=== PATIENT | female | born 1985 | race Caucasian/White ===

== ENCOUNTER 2018-10-19 11:44 | Inpatient (IN) ==
[2018-10-19] MEDS ORDERED: Famotidine 20 MG/2 ML VIAL IVP ONE (12:10)
[2018-10-19] MEDS ORDERED: Oxytocin 20 units/ LR 1000 mL 20 UNIT/1,000 ML BAG IVC ONE (12:10)
[2018-10-19] MEDS ORDERED: Metoclopramide 10 MG/2 ML VIAL IVP ONE (12:10)
[2018-10-19] MEDS ORDERED: CeFAZolin Premix DUPLEX 2,000 MG/50 ML BAG IVPB ONE (12:10)
[2018-10-19] MEDS ORDERED: Oxytocin 20 units/ LR 1000 mL 20 UNIT/1,000 ML BAG IVC SCH ×2 (12:15→17:46)
[2018-10-19] MEDS ORDERED: Ringers Solution, Lactated 1,000 ML ONE ×2 (12:26→13:48)
[2018-10-19 12:52] LABS: Basophils # 0.1 K/mcL (0.0-0.2); Basophils % 0.6 %; Eosinophils % 0.4 %; Hematocrit 37.5 % (35.3-44.9); Hemoglobin 12.2 g/dL (11.5-15.4); Immature Granulocytes % 3.3 % (0-4); Lymphocytes # 1.4 K/mcL (0.6-4.6); Lymphocytes % 14.4 %; Mean Corpuscular HGB Conc 32.5 g/dL (31.6-35.5); Mean Corpuscular Hemoglobin 28.8 pg (28.0-33.3); Mean Corpuscular Volume 88.7 fL (83.0-100.0); Mean Platelet Volume 11.1 fL (9.4-12.4); Monocytes # 0.5 K/mcL (0.0-1.3); Monocytes % 5.3 %; Platelet Count 228 K/mcL (140-400); Red Blood Count 4.23 M/mcL (3.82-4.97); Red Cell Distribution Width 18.6 % (11.5-14.5)
--- NOTE | 2018-10-19 12:57 | OB/GYN History & Physical ---
Date of Encounter: 10/19/18 Time of Encounter: 12:55 Assessment and Plan (1) 39 weeks gestation of Current visit: Yes Status: Acute (2) S/P repeat low transverse Current visit: Yes Status: Acute History of Present Illness Chief complaint: Repeat HPI: Ms. Garcia is a 33 year old female who presents today for her scheduled repeat section. She is doing well. She is having no complaints of any kind today. Is currently 39 weeks. She having no complaints of any kind today. She denies any changes medically or surgically since her last visit. She is on no new medications. Socially she denies tobacco, alcohol, illicit drug use. She has no chronic medical conditions. Surgical history includes breast augmentation, was extraction, lip augmentation, section. She has no history of abnormal Pap smears, STDs or pelvic infections. She has no history of abnormal breast findings. Socially she denies tobacco, alcohol, illicit drug use. Family history is not territory. Obstetric history is significant for one term delivery via section and 1 early miscarriage Past Med Surg Social Fam HX - Past Medical History Medical history: malignancy Additional medical history: skin pre cancer Psychiatric history: no psych history - Past Surgical History Surgical History: other Additional surgical history: breast augmentation; skin augmentation - Social History Smoking Status: Never smoker Smokeless Tobacco Status: No Alcohol use: none Drug use: none - Family History Mother Living Status: Still Living Hx Family Cardiac Disorders: No Hx Family Respiratory Disorders: No Hx Family Cancer: No Hx Family GI Disorders: No Hx Family Genitourinary Disorders: No Hx Family Endocrine Disorder: No Hx Family Musculoskeletal Disorders: No Hx Family Neuromuscular Disorders: No Hx Family Neurologic Disorders: No Hx Family HEENT Disorders: No Hx Family Autoimmune Disorders: No Hx Family Reproductive Disorders: No Hx Family Psychosocial Disorders: No Hx Family Medical Disorders: No Obstetrical History - Pregnancies : 4 Para: 1 Ab's: 2 Livin Medications and Allergies Ferrous Sulfate 325 mg PO BID 10/19/18 [History] Vitamin Tablet 1 / PO DAILY 10/19/18 [History] Allergy/AdvReac Type Severity Reaction Status Date / Time No Known Allergies Allergy Verified 10/19/18 12:07 Review of System OB All systems PM: reviewed and no additional remarkable complaints except as stated Exam - Constitutional Constitutional: well developed, well nourished, no acute distress, average body habitus - HEENT HEENT: EOMI, PERRL - Neck Neck exam: full ROM - Lungs Respiratory exam: CTAB - Cardiovascular Cardiovascular exam: RRR - Abdomen Abdomen: Present: bowel sounds normal, gravid, non tender - Extremities Extremities exam: full ROM - Cervix Dilation: 0 Effacement: 50 Station: -3 - Uterus Uterus exam: Present: normal size - Anus/Rectum Anus/Rectum: Present: normal perianal skin Results All other labs normal.
[2018-10-19 13:01] LABS: Amphetamine Screen,Urine Negative ng/mL (Cutoff=1000); Barbiturate Screen,Urine Negative ng/mL (Cutoff=200); Benzodiazepines Screen,Urine Negative ng/mL (Cutoff=200); Cannabinoid Screen,Urine Negative ng/mL (Cutoff = 50); Cocaine Screen,Urine Negative ng/mL (Cutoff= 300); Opiate Screen,Urine Negative ng/mL (Cutoff=300); Phencyclidine Screen,Urine Negative ng/mL (Cutoff=25)
[2018-10-19 13:36] LABS: Large Platelets Present (Not Present); Neutrophils # 7.4 K/mcL (1.6-8.9); Platelet Estimate Normal (Normal)
[2018-10-19 13:37] LABS: Anisocytosis 1+ (Not Present)
[2018-10-19] MEDS ORDERED: *HR* HYDROmorphone (PF) 1 MG/ML SYRINGE IVP PRN (14:39)
[2018-10-19] MEDS ORDERED: *HR* Promethazine 25 MG/ML VIAL IVP PRN (14:39)
[2018-10-19] MEDS ORDERED: Albuterol 2.5 MG/3 ML NEBULIZER IH ONE (14:39)
[2018-10-19] MEDS ORDERED: Acetaminophen IV 1,000 MG/100 ML INFUS..BTL IVPB ONE (14:39)
[2018-10-19] MEDS ORDERED: *HR* Meperidine 25 MG/ML SYRINGE IVP PRN (14:39)
[2018-10-19] MEDS ORDERED: *HR* Nalbuphine 10 MG/ML AMPUL IV PRN (14:39)
[2018-10-19] MEDS ORDERED: *HR* OxyCODONE Immed Rel 5 MG TABLET PO PRN (14:39)
[2018-10-19] MEDS ORDERED: Ketorolac 30 MG/ML VIAL IVP ONE (14:39)
[2018-10-19] MEDS ORDERED: Ondansetron 4 MG/2 ML VIAL IVP ONE (14:39)
--- NOTE | 2018-10-19 14:54 | Anesthesia Evaluation PreOp ---
Date of Encounter: 10/19/18 Time of Encounter: 13:30 - Past History Planned Operation: repeat c section Cardiac History: Denies any Significant Hx Pulmonary History: Denies Any Significant HX ACID TANK LINER History: Denies Any Significant HX Other Medical History: Denies Any Significant HX Anesthesia History: No Prior Anesthetic Complications, Past Anesthesia (breast augmentation, lip augmentation, c section (SAB), wisdom teeth. No problems with GA, no FHAP.) Alcohol Use: none Drug use: none Medications and Allergies Ferrous Sulfate 325 mg PO BID 10/19/18 [History] Vitamin Tablet 1 / PO DAILY 10/19/18 [History] Allergy/AdvReac Type Severity Reaction Status Date / Time No Known Allergies Allergy Verified 10/19/18 12:07 - Meds/Allergy Pre-op Review Medications Reviewed: Yes Allergies Reviewed: Yes Beta Blockers on Current Med List: No Anesthesia Results - Labs 10/19/18 12:15 Anesthesia Exam 124/86, 105, 18. FHTs 130s. Height: 5'1" Weight: 81 kg NPO (# of Hours): >8 Pain Scale: 0 Pain Scale Used: Numeric (1 - 10) - HEENT Pupil (Motor): Pupils equal, EOMI Mallampati: II Teeth: Normal Oral Opening: Greater than 3 - ACID TANK LINER LOC: Oriented ACID TANK LINER Motor: Normal RUE, Normal LUE, Normal RLE, Normal LLE, Normal Face ACID TANK LINER Sensory: Normal: RUE, LUE, RLE, LLE, Face - Cardiac Rhythm: Regular - Pulmonary Breath Sounds: bilateral Clear Respiratory Effort: Symmetrical Anesthesia Assess/Plan ASA Score: 2 Level of consciousness: Cooperative, Oriented, Tranquil Anesthetic Plan: Spinal Monitoring Plan: Standard Monitors Recovery Plan: PACU
--- NOTE | 2018-10-19 15:15 | OB/GYN Procedure Note ---
Section - Date of procedure: 10/19/18 Preop diagnosis: desires repeat Post-op diagnosis: same Procedure: repeat low transverse Surgeon: Efren Suarez Blood Loss: 250 Was there an teachers assistant present: Yes Communications Department Chair: Katie Bean Back Digger Operator: Maricarmen Orozco Anesthesia Type: Spinal section complications: none Disposition: Post floor Specimens: Placenta - (s) A Delivery Date: 10/19/18 Infant Delivery Time: 14:35 Presentation: vertex Position: OA Route of delivery: other Gender: Female Viability: Viable Pounds: 8 Ounces: 6 Gram Weight: 3.795 kg at 1 minute: 7 at 5 minutes: 9 Specimens collected: cord blood Placenta: partial extraction Cord: 3 umbilical vessels - Narrative Narrative: Patient was taken to the operating room with IV in place. She was given spinal anesthesia. She was then prepped and draped in sterile fashion. Once adequate analgesia was achieved a Pfannenstiel incision was made and carried sharply through subcutaneous taste and fatty tissue, until the fascial layers reached. The fascia was then nicked in midline incised bilaterally with Monroy scissors. It was then dissected vertically for adequate exposure. Rectus abdominis musculature was severed the midline and the peritoneum sharply entered. A bladder blade was placed at the inferior margin incision. The bladder flap was developed. The uterus was very thin. A low transverse incision was made lower uterine segment. Fluid was noted be clear. Incision was extended. The 's head was then delivered without difficulty. The rest the was then delivered. The cried immediately upon delivery. The course cut to cut. The was then passed to NICU team in attendance. Cord blood was obtained. Placenta was then delivered via uterine lavage and massage. The uterine incision was then closed with 0 Vicryl suture running locking fashion. 2 [id number]'s were placed for final hemostasis and because the lower uterine segment was so thin we had to utilize this to repair the incision. With the incision being closed completely the procedure was terminated. Sponge, needle, [place] counts correct 2. There was excellent no bleeding noted. The pelvic cavity was rinsed with sterile water. The subfascial region was given. There is no bleeding noted. The fascia was closed with 0 Vicryl suture in a running nonlocking fashion. The suprafascial region was rinsed thoroughly with sterile water 2 bleeders cauterized. The suprafascial region was reapproximated with 0 Vicryl suture in interrupted fashion. The skin was then closed with 4-0 Vicryl suture subcuticular fashion. Patient tolerated procedure well. Her blood loss 250 mL. Patient a female infant weight was 8 lbs. 6 oz. with Apgars of 7 at 1 minute and 9 at 5 minutes.
--- NOTE | 2018-10-19 17:26 | Anesthesia Evaluation Post Op ---
Date of Encounter: 10/19/18 Time of Encounter: 16:48 - Vital Signs Vital Signs: VSS throughout PACU stay. - Lungs Lungs: Clear Ascult./Percussion - Airway Airway: Non-obstructed - Cardiovascular Regular Rate - Mental Status Mental Status: Alert & Oriented, Answers Appropriately - Pain Pain Scale: 2 ("crampy") Pain Scale used: Numeric (1 - 10) - Nausea Vomiting Nausea Vomiting: Not Present - Hydration Hydration: NPO, Castillo catheter - Discharge PostOp Status: Transfer Patient to floor
[2018-10-19] MEDS ORDERED: Metoclopramide 10 MG/2 ML VIAL IVP PRN (17:46)
[2018-10-19] MEDS ORDERED: Sennosides 8.6 MG TABLET PO PRN (17:46)
[2018-10-19] MEDS ORDERED: Simethicone 80 MG TAB.CHEW PO PRN (17:46)
[2018-10-19] MEDS ORDERED: Ondansetron 4 MG/2 ML VIAL IVP PRN (17:46)
[2018-10-19] MEDS: ceFAZolin 1,000 MG in Water for inj. (sterile) 20 ML 10 ML IVP SCH (21:45)
[2018-10-20] MEDS: Ibuprofen 600 MG TABLET PO PRN ×4 (01:21→22:29)
[2018-10-20 04:54] LABS: Basophils # 0.1 K/mcL (0.0-0.2); Basophils % 0.4 %; Eosinophils % 0.2 %; Hematocrit 38.5 % (35.3-44.9); Hemoglobin 11.6 g/dL (11.5-15.4); Lymphocytes # 1.4 K/mcL (0.6-4.6); Lymphocytes % 10.9 %; Mean Corpuscular HGB Conc 30.1 g/dL (31.6-35.5); Mean Corpuscular Hemoglobin 28.7 pg (28.0-33.3); Mean Platelet Volume 11.2 fL (9.4-12.4); Monocytes # 0.7 K/mcL (0.0-1.3); Monocytes % 5.5 %; Neutrophils # 10.3 K/mcL (1.6-8.9); Platelet Count 193 K/mcL (140-400); Red Blood Count 4.04 M/mcL (3.82-4.97); Red Cell Distribution Width 18.2 % (11.5-14.5)
[2018-10-20 04:56] LABS: Mean Corpuscular Volume 95.3 fL (83.0-100.0)
[2018-10-20] MEDS: ceFAZolin 1,000 MG in Water for inj. (sterile) 20 ML 10 ML IVP SCH (04:59)
[2018-10-20] MEDS: Prenatal Vit/FA 1 EACH TABLET PO SCH (08:44)
[2018-10-20] MEDS: *HR* OxyCODONE/APAP 5/325 TABLET PO PRN ×3 (12:04→20:08)
--- NOTE | 2018-10-20 17:51 | OB/GYN Progress Note ---
Date of Encounter: 10/20/18 Time of Encounter: 17:48 - Assessment and Plan (1) S/P repeat low transverse Current Visit: Yes Status: Acute Pain moderately controlled with ibuprofen, started taking Percocet today dt worsening abdominal pain today Recommended taking pain meds scheduled until under better control Complaint of itching all over, likely dt Morphine. Ordered benadryl PRN for itching Doing well otherwise, continue with current management Subjective - Subjective Principal diagnosis: s/p Interval history: Meeting milestones as expected. Ambulating well. Tolerating diet. Denies passing gas, hasn't had BM yet. Pain moderately controlled with prescribed pain medications. Lochia normal, no large clots noted. well. Patient reports: appetite normal, voiding normally, ambulating normally : doing well, nursing well Objective - Vital Signs Latest vital signs: Vital Signs Temp Pulse Resp BP Pulse Ox 10/20/18 12:09 98.7 F 88 16 124/84 99 10/20/18 08:07 98.4 F 87 16 114/78 94 10/20/18 04:00 98.5 F 95 16 121/74 98 10/20/18 01:10 98.1 F 92 16 118/72 98 10/19/18 20:30 98.3 F 93 16 122/87 100 10/19/18 19:35 97.6 F 101 18 124/73 100 10/19/18 18:35 97.5 F L 91 16 118/81 99 10/19/18 18:05 97.5 F L 93 16 125/81 99 Intake and Output 10/20/18 10/20/18 10/20/18 07:59 15:59 23:59 Output Total 260 / 960 700 / 960 Balance -260 / -960 -700 / -960 Output: Urine 700 / 700 Catheter 260 / 260 Other: Weight 77.746 kg Patient Weight 10/20/18 23:59 Weight 77.746 kg - Exam Lungs: right: normal Chest: Normal S1, Normal S2 Extremities: Present: edema (non-pitting bilateral LE edema up to mid calves) Abdomen: Present: soft, tenderness (left sided and midline pain with palpation) Incision: Present: normal, dry, intact. Absent: erythematous, suppurative Uterus: Present: firm - Labs Labs: Laboratory Results - last 24 hr 10/20/18 04:40 WBC 12.6 H RBC 4.04 Hgb 11.6 Hct 38.5 MCV 95.3 D MCH 28.7 MCHC 30.1 L RDW 18.2 H Plt Count 193 MPV 11.2 Immature Gran % 1.0 Seg Neutrophils % 82.0 Lymphocytes % 10.9 Monocytes % 5.5 Eosinophils % 0.2 Basophils % 0.4 Neutrophils # 10.3 H Lymphocytes # 1.4 Monocytes # 0.7 Eosinophils # 0.0 Basophils # 0.1
[2018-10-20] MEDS ORDERED: Lanolin 7 G OINT...G. TP PRN (22:33)
[2018-10-21] MEDS: *HR* OxyCODONE/APAP 5/325 TABLET PO PRN ×4 (00:08→12:29)
[2018-10-21 08:10] VITALS: BP 124/53
[2018-10-21] MEDS: Prenatal Vit/FA 1 EACH TABLET PO SCH (08:27)
--- NOTE | 2018-10-21 08:36 | Discharge Summary ---
Date of Encounter: 10/21/18 Time of Encounter: 08:30 - Discharge Diagnosis (1) S/P repeat low transverse Priority: Primary Status: Acute (2) Breast feeding status of mother Priority: Secondary Status: Acute - Discharge Medications Prescriptions: New Docusate [Colace] 100 mg PO BID #60 capsule Ibuprofen [Motrin] 600 mg PO Q6HR PRN #60 tablet PRN Reason: Cramping OxyCODONE/APAP 5/325 [Percocet 5/325 MG] 1 each PO Q6HR PRN 7 Days #28 tablet PRN Reason: Moderate pain 4-6 Simethicone [Gas-X] 80 mg PO TID PRN tab.chew PRN Reason: Dyspepsia Mupirocin [Bactroban Oint] 1 appl TP BID PRN #0 tube PRN Reason: Sore Nipples Continued Vitamin Tablet 1 / PO DAILY Discontinued Ferrous Sulfate 325 mg PO BID Home Medications: Vitamin Tablet 1 / PO DAILY 10/19/18 [History] Docusate [Colace] 100 mg PO BID #60 capsule 10/21/18 [Rx] Ibuprofen [Motrin] 600 mg PO Q6HR PRN #60 tablet 10/21/18 [Rx] Mupirocin [Bactroban Oint] 1 appl TP BID PRN #0 tube 10/21/18 [Rx] OxyCODONE/APAP 5/325 [Percocet 5/325 MG] 1 each PO Q6HR PRN 7 Days #28 tablet 10/21/18 [Rx] Simethicone [Gas-X] 80 mg PO TID PRN tab.chew 10/21/18 [Rx] Allergies/Adverse Reactions: Allergy/AdvReac Type Severity Reaction Status Date / Time No Known Allergies Allergy Verified 10/19/18 12:07 Data Procedures and tests throughout hospitalization: Laboratory Tests 10/19/18 10/19/18 10/20/18 12:15 12:15 04:40 WBC 9.7 12.6 H RBC 4.23 4.04 Hgb 12.2 11.6 Hct 37.5 38.5 MCV 88.7 95.3 D MCH 28.8 28.7 MCHC 32.5 30.1 L RDW 18.6 H 18.2 H Plt Count 228 193 MPV 11.1 11.2 Immature Gran % 3.3 1.0 Seg Neutrophils % 76.0 82.0 Lymphocytes % 14.4 10.9 Monocytes % 5.3 5.5 Eosinophils % 0.4 0.2 Basophils % 0.6 0.4 Neutrophils # 7.4 10.3 H Lymphocytes # 1.4 1.4 Monocytes # 0.5 0.7 Eosinophils # 0.0 0.0 Basophils # 0.1 0.1 Platelet Estimate Normal Large Platelets Present A Anisocytosis 1+ A Urine Opiates Screen Negative Ur Barbiturates Screen Negative Ur Phencyclidine Scrn Negative Ur Amphetamines Screen Negative U Benzodiazepines Scrn Negative Urine Cocaine Screen Negative U Marijuana (THC) Screen Negative Ur Drug Screen Interp See Below Date of admission: 10/19/18 11:44 Primary care physician: PCP NONE Discharging clinician: Chelsea Bryant Anticipated date of discharge: 10/21/18 - Patient Status Disposition: Home, Self-Care Functional capacity at discharge: independent ambulation Overall status at discharge: patient is progressing back to baseline - Discharge Instructions Follow Up With: NONE,PCP [Primary Care Provider] - Efren Terrell MD [Partnered Physician] - - Diet and Activity Activity: resume usual activities as tolerated Diet: advance to your usual diet Hospital Course Reason for admission: section, IUP at term Delivery: section Episiotomy: none Laceration: none Other procedures: none complications: none Discharge diagnosis: IUP at term delivered [place] baby: female Hospital course: - Date of procedure: 10/19/18 Preop diagnosis: desires repeat Post-op diagnosis: same Procedure: repeat low transverse Surgeon: Efren Terrell Quantitated Blood Loss: 250 Was there an ophthalmic assistant present: Yes Clipper Machine Operator: Katie Bean Buffing Wheel Inspector: Maricarmen Orozco Anesthesia Type: Spinal section complications: none Disposition: Post floor Specimens: Placenta - Infant (s) A Delivery Date: 10/19/18 Delivery Time: 14:35 Presentation: vertex Position: OA Route of delivery: other Gender: Female Viability: Viable Pounds: 8 Ounces: 6 Gram Weight: 3.795 kg at 1 minute: 7 at 5 minutes: 9 Specimens collected: cord blood Placenta: partial extraction Cord: 3 umbilical vessels - Narrative Narrative: Patient was taken to the operating room with IV in place. She was given spinal anesthesia. She was then prepped and draped in sterile fashion. Once adequate analgesia was achieved a Pfannenstiel incision was made and carried sharply through subcutaneous taste and fatty tissue, until the fascial layers reached. The fascia was then nicked in midline incised bilaterally with Monroy scissors. It was then dissected vertically for adequate exposure. Rectus abdominis musculature was severed the midline and the peritoneum sharply entered. A nicol dder blade was placed at the inferior margin incision. The bladder flap was developed. The uterus was very thin. A low transverse incision was made lower uterine segment. Fluid was noted be clear. Incision was extended. The infant's head was then delivered without difficulty. The rest the was then delivered. The cried immediately upon delivery. The course cut to cut. The was then passed to NICU team in attendance. Cord blood was obtained. Placenta was then delivered via uterine lavage and massage. The uterine incision was then closed with 0 Vicryl suture running locking fashion. 2 [id number]'s were placed for final hemostasis and because the lower uterine segment was so thin we had to utilize this to repair the incision. With the incision being closed completely the procedure was terminated. Sponge, needle, [place] counts correct 2. There was excellent no bleeding noted. The pelvic cavity was rinsed with sterile water. The subfascial region was given. There is no bleeding noted. The fascia was closed with 0 Vicryl suture in a running nonlocking fashion. The suprafascial region was rinsed thoroughly with sterile water 2 bleeders cauterized. The suprafascial region was reapproximated with 0 Vicryl suture in interrupted fashion. The skin was then closed with 4-0 Vicryl suture subcuticular fashion. Patient tolerated procedure well. Her blood loss 250 mL. Patient a female weight was 8 lbs. 6 oz. with Apgars of 7 at 1 minute and 9 at 5 minutes. Time Attestation: Total time spent providing and/or coordinating discharge services: - VTE Documentation of Mechanical Device: Intermittent pneumatic compression device - Attending Attestation I examined this patient and my medical decision making was reviewed with the resident physician. I agree with the documented findings, disposition, and treatment plan as described above. Patient is status post section day 2. Patient will be discharged home today in stable condition. Assessment within normal limits as documented by resident physician Exam - Constitutional Vitals: Temp Pulse Resp BP Pulse Ox 98.2 F 93 16 124/53 99 10/21/18 07:30 10/21/18 07:30 10/21/18 07:30 10/21/18 07:30 10/20/18 19:30 General appearance IM: cooperative, A&O X 3, no acute distress, answers questions appropriately - Respiratory Respiratory exam: Present: CTAB. Absent: respiratory distress, wheezes - Cardiovascular Cardiovascular exam IM: Present: RRR. Absent: systolic murmur - GI/Abdominal GI/Abdominal exam IM: normal bowel sounds, soft Incision: normal, dry, intact, dressed (dermabound in place) - Extremities Exam Extremities exam IM: Present: full ROM, pedal edema (+1 non pitting bilat), radial pulses palpable and symmetrical. Absent: calf tenderness - Neurological Exam Neurological exam: abnormal gait, oriented X3, no focal deficits
[2018-10-21] MEDS: Ibuprofen 600 MG TABLET PO PRN (10:21)
== END 2018-10-21 13:50 | disposition home or self-care (01) | DRG 788 ==
LOC: 1NENULAB 11:44 → 1NENUOBS 18:14
PROVIDERS: ADMIT Obstetrics & Gynecology; ATTEND Obstetrics & Gynecology